=== PATIENT | female | born 1970 | race Caucasian/White ===

== ENCOUNTER 2022-11-26 11:20 | Day surgery (SDC) | payer BC, SELFPAY ==
[2022-11-26 11:45] VITALS: BMI 21.9
[2022-11-26 11:48] VITALS: BP 138/93; PULSE 75; RESP 17; TEMP 36.8; O2SAT 99
[2022-11-26] MEDS: LACTATED RINGERS 1,000 ML 42 ML IV (11:56)
--- NOTE | 2022-11-26 12:02 | PM.HP.1 ---
History of Present Illness History of Present Illness Date Patient Seen: 11/26/22 Chief complaint: SDC Narrative: Family history of colon cancer in her mother, now in for 3rd colonoscopy. Last was performed 5 years ago. Does also have the personal history of a small colon polyp in the distant past. PFSH Social History household members: spouse Smoking Status: Former smoker alcohol intake: current Meds Home Medications and Allergies Home Medications Medication Instructions Recorded Confirmed Type No Known Home Medications 11/26/22 11/26/22 History Allergies Allergy/AdvReac Type Severity Reaction Status Date / Time No Known Drug Allergies Allergy Verified 11/26/22 11:43 Exam Vital Signs (past 8 hours): - 11/26/22 11:48 Temperature 98.2 F Pulse Rate 75 Respiratory Rate 17 Blood Pressure 138/93 H Pulse Oximetry 99 Oxygen Delivery Method Room Air Oxygen Delivery Method Room Air Narrative Exam Narrative: Oropharynx free of lesions Chest clear to auscultation percussion Cardiac exam reveals no S3 or murmur Assessment & Plan Assessment & Plan narrative: Family history of colon cancer and personal history of colon polyps. Need for follow-up colonoscopy. Risks, benefits, alternatives have been explained.
--- NOTE | 2022-11-26 12:04 | P.OP.COLON_ITS ---
Operative Date/Time/Diagnoses Date of procedure: 11/26/22 Pre-op diagnosis: See indication and findings Procedure & Clinicians Study performed: Colonoscopy Indications: Family history of colon cancer in her mother and personal history of colon polyps need for follow-up colonoscopy at a 5 year interval Surgeon: Sharon Trivedi Procedure Notes Procedure in detail: After informed consent was obtained the patient was placed in left lateral decubitus position. The video colonoscope was introduced the rectum slowly a dvanced cecum. On slow withdrawal mucosa was carefully examined. The scope was removed. The patient tolerated procedure well. Preparation was good. Blood loss none Complications none Findings 1. Normal colonoscopy to cecum Lauren should have follow-up colonoscopy in 5 years.
[2022-11-26 12:32] VITALS: BP 101/66; PULSE 79; RESP 16; TEMP 36.4; O2SAT 97
[2022-11-26 12:37] VITALS: BP 102/65; PULSE 68; RESP 16; O2SAT 100
[2022-11-26 12:44] VITALS: BP 98/64; PULSE 68; RESP 16; O2SAT 99
== END 2022-11-26 13:10 | disposition home or self-care (01) ==
PROVIDERS: Referring Provider Internal Medicine Gastroenterology; Visit Provider Internal Medicine Gastroenterology
PROC: 0DJD8ZZ Inspection of Lower Intestinal Tract, Via Natural or Artificial Opening Endoscopic (ICD-10-PCS; CPT 45378; principal; 2022-11-26 12:30)
DX: Z12.11 Encounter for screening for malignant neoplasm of colon (principal); Z86.010 Personal history of colon polyps; Z80.0 Family history of malignant neoplasm of digestive organs
CPT/HCPCS: 45378; J2704